=== PATIENT | male | born 1970 | race Caucasian/White ===

== ENCOUNTER 2025-02-24 10:41 | Outpatient (CLI) | payer BC | END 2025-02-24 10:42 | disposition home or self-care (01) | LOC: CSHULT 10:41 | PROVIDERS: ATTEND Physician Assistant Medical | DX: K21.9 Gastro-esophageal reflux disease without esophagitis (principal); R79.89 Other specified abnormal findings of blood chemistry; R13.10 Dysphagia, unspecified; J38.5 Laryngeal spasm; K76.0 Fatty (change of) liver, not elsewhere classified | CPT/HCPCS: 76705 ==